=== PATIENT | male | born 1995 | race Hispanic/Latino ===

== ENCOUNTER 2024-03-25 20:02 | Inpatient (IN) | payer OTHER ==
[2024-03-25] MEDS ORDERED: Ondansetron ODT 4 MG TAB PO PRN (20:35)
[2024-03-25 21:01] LABS: #Basophils 0.03 10x3/uL (0.0-0.2); #Eosinophils Less than 0.03 10x3/uL (0.0-0.7); %Basophils 0.3 % (0.0-1.0); %Eosinophils 0.1 % (0.0-10.0); %Lymphocytes 13.4 % (21.0-51.0); %Neutrophils 78.9 % (42.0-75.0); Hematocrit 45.1 % (42.0-52.0); Hemoglobin 15.4 g/dL (14.0-18.0); Mean Corpuscular HGB CONC 34.1 g/dL (32.0-36.0); Mean Corpuscular Hemoglobin 30.6 pg (27.0-31.0); Mean Corpuscular Volume 89.5 fL (78.0-98.0); Mean Platelet Volume 11.3 fL (7.4-10.4); Platelet Count 224 10x3/uL (130-400); RBC Distribution Width 12.3 % (11.5-14.5); Red Blood Cell (RBC) Count 5.04 mill/uL (4.70-6.10)
[2024-03-25 21:17] LABS: ALT (SGPT) 14 U/L (8-55); AST (SGOT) 18 U/L (5-34); Albumin 4.7 g/dL (3.5-5.0); Alkaline Phosphatase 58 U/L (40-110); Anion Gap 16 mmol/L (10-20); BUN (Urea Nitrogen) 10 mg/dL (8.9-20.6); Bilirubin, Total 1.8 mg/dL (0.2-1.2); Calc. Creatinine Clearance 0 mL/min (70-130); Calcium 9.3 mg/dL (7.8-10.44); Carbon Dioxide 24 mmol/L (22-29); Chloride 104 mmol/L (98-107); Estimated GFR 123; Globulin 3.3 g/dL (2.4-3.5); Glucose 106 mg/dL (70-105); Potassium 4.6 mmol/L (3.5-5.1); Sodium 139 mmol/L (136-145)
[2024-03-25 21:20] VITALS: BMI 25.4
[2024-03-25] MEDS: Acetaminophen 500 MG TAB PO SCH (21:21)
[2024-03-25] MEDS: Aspirin Chewable 81 MG TAB PO SCH (21:21)
[2024-03-25] MEDS: Sodium Chloride 0.9% 1,000 ML IV SCH (21:34)
[2024-03-26] MEDS: Ondansetron PF 4 MG/2 ML Vial IVP PRN (05:03)
[2024-03-26] MEDS: Sodium Chloride 0.9% 1,000 ML IV SCH (11:46)
[2024-03-26] MEDS: FLU (Fluarix Triv) TS24-25(6MOS UP)/PF 45 MCG/0.5 ML Syringe IM ONE (11:47)
[2024-03-26] MEDS: Acetaminophen 325 MG TAB PO PRN (15:59)
[2024-03-27 05:43] LABS: #Basophils 0.04 10x3/uL (0.0-0.2); %Basophils 0.5 % (0.0-1.0); %Eosinophils 0.7 % (0.0-10.0); %Lymphocytes 28.6 % (21.0-51.0); %Monocytes 6.9 % (0.0-10.0); Hematocrit 37.9 % (42.0-52.0); Hemoglobin 12.8 g/dL (14.0-18.0); Mean Corpuscular HGB CONC 33.8 g/dL (32.0-36.0); Mean Corpuscular Hemoglobin 30.5 pg (27.0-31.0); Mean Corpuscular Volume 90.5 fL (78.0-98.0); Mean Platelet Volume 11.5 fL (7.4-10.4); Platelet Count 187 10x3/uL (130-400); RBC Distribution Width 12.2 % (11.5-14.5); Red Blood Cell (RBC) Count 4.19 mill/uL (4.70-6.10)
[2024-03-27 05:52] LABS: ALT (SGPT) 10 U/L (8-55); AST (SGOT) 14 U/L (5-34); Albumin 3.7 g/dL (3.5-5.0); Alkaline Phosphatase 47 U/L (40-110); Anion Gap 13 mmol/L (10-20); BUN (Urea Nitrogen) 10 mg/dL (8.9-20.6); Bilirubin, Total 0.5 mg/dL (0.2-1.2); Calc. Creatinine Clearance 122 mL/min (70-130); Carbon Dioxide 24 mmol/L (22-29); Chloride 109 mmol/L (98-107); Estimated GFR 123; Globulin 2.4 g/dL (2.4-3.5); Glucose 92 mg/dL (70-105); Potassium 3.5 mmol/L (3.5-5.1); Protein, Total 6.1 g/dL (6.0-8.3); Sodium 142 mmol/L (136-145)
[2024-03-27 12:35] VITALS: BP 143/94; TEMP 98.5
== END 2024-03-27 13:30 | DRG 93 ==
LOC: EEVIPCON 20:10 → 2SE 20:10 → OBSVTOIN 03-26 15:02
PROVIDERS: ADMIT Internal Medicine; ATTEND Family Medicine
DX: G92.9 Unspecified toxic encephalopathy (principal); F31.9 Bipolar disorder, unspecified
CPT/HCPCS: 12013; 36415; 36416; 51701; 70450; 70486; 70551; 71045; 80053; 80306; 80307; 81001; 82140; 82805; 83605; 83735; 84145; 84439; 84443; 85025; 90471; 90656; 90715; 93005; 96374; 96376; G0378; J0665; J2405; J7030; Q0162